=== PATIENT | female | born 2000 | race Caucasian/White ===

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

== ENCOUNTER 2021-02-23 09:45 | Emergency (ER) | payer MEDICAID ==
--- NOTE | 2021-02-23 10:02 | ED Lower Extremity ---
General Stated Complaint: R ANKLE PAIN Source: patient, family Exam Limitations: no limitations History of Present Illness Date Seen by Provider: Feb 23, 2021 Time Seen by Provider: 09:50 Initial Comments 20-year-old female with no significant past medical history coming in after injuring her right ankle. Last night around midnight she had been drinking some alcohol, was walking down some stairs, and twisted her right ankle. She did also land on her left knee which did not cause significant pain. Did not hit her head or pass out. Remembers all events. When she woke up this morning she was having worsening right ankle pain, and took ibuprofen 600 mg around 8:30 AM this morning which has helped with the pain. She does endorse some bruising and swelling to her right lateral ankle. She says she has been able to put weight on it but it is difficult and makes the pain worse. The pain is throbbing, moderate, constant, and better with rest. She is otherwise denying any other acute complaints. LMP was 2 days ago. Allergies and Home Medications Allergies Coded Allergies: No Known Drug Allergies (Unverified , 04/15/16) Patient Home Medication List Home Medication List Reviewed: Yes Review of Systems Constitutional: No chills EENTM: No blurred vision Respiratory: No cough Cardiovascular: no symptoms reported Gastrointestinal: no symptoms reported Genitourinary: no symptoms reported Musculoskeletal: joint pain Skin: no symptoms reported Psychiatric/Neurological: No Symptoms Reported All Other Systems Reviewed Negative Unless Noted: Yes Past Mtpvjee-Svrzex-Vxnhta Hx Patient Social History Tobacco Use?: No Substance use?: No Alcohol Use?: Yes Past Medical History Surgeries: No Reproductive Disorders: No Physical Exam Vital Signs Vital Signs - First Documented 02/23/21 09:51 Pulse 98 Resp 18 B/P (MAP) 155/86 (109) Pulse Ox 98 O2 Delivery Room Air Capillary Refill : Height, Weight, BMI Height: 5'6" Weight: 150lbs. oz. 68.049052vk; 24.21 BMI Method:Stated General Appearance: WD/WN, no apparent distress HEENT: PERRL/EOMI, normal ENT inspection, pharynx normal Neck: non-tender, full range of motion, supple, normal inspection Cardiovascular: regular rate, rhythm, no edema, no murmur Respiratory: chest non-tender, lungs clear, normal breath sounds, no respiratory distress, no accessory muscle use Gastrointestinal: normal bowel sounds, non tender, soft; No guarding Hips: bilateral hip non-tender, bilateral hip normal inspection, bilateral hip normal range of motion, bilateral hip no evidence of injury Legs: bilateral leg non-tender, bilateral leg normal inspection, bilateral leg normal range of motion, bilateral leg no evidence of injury Knees: bilateral knee non-tender; right knee normal inspection; bilateral knee normal range of motion, bilateral knee no evidence of injury; left knee other (small abrasion to L knee) Ankles: left ankle non-tender, left ankle normal inspection, left ankle normal range of motion, left ankle no evidence of injury; right ankle limited range of motion, right ankle pain, right ankle soft tissue tenderness, right ankle swelling, right ankle other (Tender maximally over the CFL and PT FL, no pain with squeeze test, no proximal fibular tenderness, no tenderness over the fifth metatarsal, no tenderness over Lisfranc joint, intact Achilles) Feet: bilateral foot non-tender, bilateral foot normal inspection, bilateral foot normal range of motion, bilateral foot no evidence of injury Neurologic/Tendon: normal sensation, normal motor functions Neurologic/Psychiatric: no motor/sensory deficits, alert, normal mood/affect Skin: normal color, warm/dry Lymphatic: no adenopathy Progress/Results/Core Measures Results/Orders My Orders Orders - VERO BENAVIDES MD Ankle, Right, 3 Views (02/23/21 09:56) Vital Signs/I&O 02/23/21 09:51 Pulse 98 Resp 18 B/P (MAP) 155/86 (109) Pulse Ox 98 O2 Delivery Room Air Progress Progress Note : Progress Note 20-year-old female with above history coming in due to right lateral ankle pain. ABCs were intact and vitals were stable on presentation. She never had any trauma to her head, is GCS 15, and is otherwise at her baseline. I do not believe she needs a CT of her head at this time. Additionally has no midline spinal tenderness and did not suffer a significant fall injuring her back. The left knee does have a small abrasion but no tenderness and no concerns for fracture. Right ankle does have lateral tenderness most notably over her CFL and ATFL ligaments. She does have significant soft tissue swelling and bruising. We will obtain an x-ray to further assess for fracture. Offered her Tylenol for pain control given she just took ibuprofen, but she says she is doing okay right now. My interpretation of the three-view x-ray of her right ankle I did not see any obvious fracture or dislocation. I compared it to her previous right ankle x- ray from 2017 and it appears similar. Diagnostic Imaging Diagonstic Imaging: Xray Plain Films/CT/US/NM/MRI: ankle Comments X-ray of the ankle ordered and interpreted by me showing no fracture or dislocation. Departure Impression Primary Impression: Right ankle sprain Qualified Codes: S93.411A - Sprain of calcaneofibular ligament of right ankle, initial encounter Disposition: HOME, SELF-CARE Condition: Stable Departure-Patient Inst. Decision time for Depature: 11:01 Referrals: NO,LOCAL PHYSICIAN (PCP) Primary Care Physician BEN LEVI MD Patient Instructions: Ankle Sprain (DC) Add. Discharge Instructions: You were seen in the emergency department for your right ankle pain with bruising and swelling. Fortunately nothing is broken but you do have a sign ificant sprain. I recommend keeping it wrapped for pressure to minimize the swelling, take 600 mg of ibuprofen every 6 hours for the next several days, and ice it 20 minutes on roughly 3-4 times per day. Try to keep it elevated to help with the swelling. If pain is not significantly improving over the next week then I do recommend he follow-up with the orthopedic physician Dr. Levi or whoever you have a preference for. Work/School Note: Work Release Form Date Seen in the Emergency Department: Feb 23, 2021 Return to Work: Feb 25, 2021 Restrictions: No Restrictions VERO BENAVIDES MD Feb 23, 2021 10:02
--- NOTE | 2021-02-23 11:05 | Diagnostic Imaging Report ---
EXAM: ANKLE, RIGHT, 3 VIEWS INDICATION: Right ankle pain and injury. COMPARISON: 04/15/2016. FINDINGS: Soft tissue swelling about the lateral malleolus. No fracture or malalignment. IMPRESSION: No acute osseous findings in the right ankle. Dictated by: Dictated on workstation # [id number]
[2021-02-23 11:12] VITALS: BP 155/86
== END 2021-02-23 11:12 | disposition home or self-care (01) ==
LOC: EDUNIT# 09:45 → ER 09:48
DX: S93.411A Sprain of calcaneofibular ligament of right ankle, initial encounter (principal); X50.1XXA Overexertion from prolonged static or awkward postures, initial encounter
CPT/HCPCS: 73610; 99282; L4350

== ENCOUNTER → 2021-12-10 | Outpatient (CLI) | payer MEDICAID ==
--- NOTE | 2021-12-10 18:49 | Diagnostic Imaging Report ---
INDICATION: Routine surveillance TECHNIQUE: Multiple real-time grayscale images were obtained over the gravid uterus. COMPARISON: None FINDINGS: Number: Single live Presentation: Transverse with head to maternal left Placenta: Posterior with inferior tip 2.9 cm from the internal cervical os Amniotic Fluid: TRINY is 16.1 cm. Single largest vertical pocket is 6.2 cm. Heart Rate: 146 bpm BPD: 4.8 cm; consistent with 20 weeks and 5 days HC: 19 cm; consistent with 21 weeks and 2 days AC: 16 cm; consistent with 21 weeks and 3 days FL: 3.3 cm; consistent with 20 weeks and 3 days EGA from current exam: 21 weeks and 0 days gestation plus or minus 2 weeks ALEKSANDER from current exam: 04/22/2022 CLINICAL DATES: Gestational age 21 weeks and 0 days, ALEKSANDER 04/22/2022 EFW: 385 g (14 ounces +/- 2 ounces); this is consistent with the 39th percentile FINDINGS: The anatomic survey is grossly unremarkable. The stomach, four-chamber heart, kidneys, bladder, three-vessel cord and the cord insertion are well seen. The spine and intracranial structures are grossly unremarkable. Maternal adnexa are unremarkable. Maternal ovaries are not well visualized due to positioning. IMPRESSION: Single live intrauterine at approximately 21 weeks and 0 days, with an ALEKSANDER of 04/22/2022. These are concordant with clinical dates. No gross abnormalities are seen at this time. Dictated by: Dictated on workstation # [id number]
== END ==
LOC: RAD 09:45
PROVIDERS: ATTEND Obstetrics & Gynecology
DX: Z34.02 Encounter for supervision of normal first pregnancy, second trimester (principal); Z3A.21 21 weeks gestation of pregnancy
CPT/HCPCS: 76805

== ENCOUNTER 2022-04-21 05:14 | Inpatient (IN) | payer MEDICAID ==
[2022-04-21] VITALS (78 sets, daily range): BP systolic 106–153; BP diastolic 49–94
[~2022-04-21] VITALS: Ht 172.7 cm; Wt 105.5 kg
[2022-04-21 06:27] LABS: BILIRUBIN,URINE NEGATIVE (NEGATIVE); CLARITY,URINE CLEAR; COLOR,URINE YELLOW; GLUCOSE, URINE (UA) NEGATIVE (NEGATIVE); KETONES,URINE NEGATIVE (NEGATIVE); LEUKOCYTE ESTERASE ,URINE NEGATIVE (NEGATIVE); NITRITE,URINE NEGATIVE (NEGATIVE); PROTEIN,URINE NEGATIVE (NEGATIVE)
[2022-04-21 06:34] LABS: BACTERIA,URINE TRACE /HPF; SQUAMOUS EPITHELIAL CELL,UR 0-2 /HPF
[2022-04-21 07:59] LABS: BASOPHILS % (AUTO) 0 % (0-10); EOSINOPHILS # (AUTO) 0.1 10^3/uL (0.0-0.3); EOSINOPHILS % (AUTO) 1 % (0-10); HEMATOCRIT 38 % (35-52); HEMOGLOBIN 12.3 g/dL (11.5-16.0); LYMPHOCYTES # (AUTO) 1.8 10^3/uL (1.0-4.0); LYMPHOCYTES % (AUTO) 18 % (12-44); MEAN CORPUSCULAR HEMOGLOBIN 26 pg (25-34); MEAN CORPUSCULAR HGB CONC 33 g/dL (32-36); MEAN CORPUSCULAR VOLUME 81 fL (80-99); MEAN PLATELET VOLUME 11.8 fL (9.0-12.2); MONOCYTES # (AUTO) 1.1 10^3/uL (0.0-1.0); MONOCYTES % (AUTO) 10 % (0-12); NEUTROPHILS # (AUTO) 7.2 10^3/uL (1.8-7.8); NEUTROPHILS % (AUTO) 71 % (42-75); PLATELET COUNT 266 10^3/uL (130-400); WHITE BLOOD COUNT 10.1 10^3/uL (4.3-11.0)
[2022-04-21] MEDS: D5 LR IV SOLUTION 1,000 ML IV SCH ×3 (08:18→21:38)
[2022-04-21] MEDS ORDERED: OXYTOCIN PRE-MIX DRIP 500 ML IV SCH (08:30)
--- NOTE | 2022-04-21 08:40 | History & Physical-OB ---
OB - Chief Complaint & HPI Date/Time Date of Admission: Date of Admission: Apr 21, 2022 at 06:20 Date seen by a Provider: Apr 21, 2022 Time Seen by a Provider: 08:20 Chief Complaint/History OB-Reason for Admission/Chief: Rupture of Membranes Hx : 1 Hx Para: 0 Expected Date of Delivery: Apr 22, 2022 Gestational Age in Weeks: 39 Gestational Age in Days: 6 Admission Nurse Assessment Rev: Yes History of Labs A pos Antibody neg CF carrier RNI RPR NR HIV NR HBsAg NR GC neg GBS neg Allergies and Home Medications Allergies Coded Allergies: Penicillins (Verified Allergy, Mild, Rash, 04/21/22) Patient Home Medication List Home Medication List Reviewed: Yes OB - History Hx of Present Care: Yes Ultrasounds: Normal mid trimester US Obstetrical Complications: None Medical Complications: None Obstetrical History Hx : 1 Delivery History Hx Blood Disorders: No Patient Past Medical History n/a Immunizations Influenza Vaccine Up-to-Date: Yes; Up-to-Date OB - Admission Exam Physical Exam Vitals: Vital Signs 04/21/22 04/21/22 06:28 06:48 Temp 37.0 Pulse 100 Resp 20 B/P (MAP) 138/83 (101) Pulse Ox 97 O2 Delivery Room Air HEENT: NCAT Heart: Rhythm Normal Lungs: Clear Abdomen: Gravid Extremities: Normal Reflexes: Normal Cervical Dilatation: 1cm Effacement: 75% Station: -2 Membranes: Ruptured Amniotic Fluid: Clear Heart Rate: 130's Accelerations: Accelerations Present Decelerations: No Decelerations Short Term Variability: Present Usp Variability: Average (6-25) Contractions on Admission: 6-10 Minutes Apart Intensity: Mild Labs Laboratory Tests Test 04/21/22 05:20 04/21/22 06:00 04/21/22 07:30 Range/Units Urine Color YELLOW Urine Clarity CLEAR Urine pH 7.0 5-9 Urine Specific [place] 1.020 1.016-1.022 Urine Protein NEGATIVE NEGATIVE Urine Glucose (UA) NEGATIVE NEGATIVE Urine Ketones NEGATIVE NEGATIVE Urine Nitrite NEGATIVE NEGATIVE Urine Bilirubin NEGATIVE NEGATIVE Urine Urobilinogen 0.2 < = 1.0 MG/DL Urine Leukocyte Esterase NEGATIVE NEGATIVE Urine RBC (Auto) NEGATIVE NEGATIVE Urine RBC NONE /HPF Urine WBC NONE /HPF Urine Squamous Epithelial Cells 0-2 /HPF Urine Crystals NONE /LPF Urine Bacteria TRACE /HPF Urine Casts NONE /LPF Urine Mucus NEGATIVE /LPF Urine Culture Indicated NO Membranes Rupture POSITIVE White Blood Count 10.1 4.3-11.0 10^3/uL Red Blood Count 4.66 3.80-5.11 10^6/uL Hemoglobin 12.3 11.5-16.0 g/dL Hematocrit 38 35-52 % Mean Corpuscular Volume 81 80-99 fL Mean Corpuscular Hemoglobin 26 25-34 pg Mean Corpuscular Hemoglobin Concent 33 32-36 g/dL Red Cell Distribution Width 14.4 10.0-14.5 % Platelet Count 266 130-400 10^3/uL Mean Platelet Volume 11.8 9.0-12.2 fL Immature Granulocyte % (Auto) 1 % Neutrophils (%) (Auto) 71 42-75 % Lymphocytes (%) (Auto) 18 12-44 % Monocytes (%) (Auto) 10 0-12 % Eosinophils (%) (Auto) 1 0-10 % Basophils (%) (Auto) 0 0-10 % Neutrophils # (Auto) 7.2 1.8-7.8 10^3/uL Lymphocytes # (Auto) 1.8 1.0-4.0 10^3/uL Monocytes # (Auto) 1.1 H 0.0-1.0 10^3/uL Eosinophils # (Auto) 0.1 0.0-0.3 10^3/uL Basophils # (Auto) 0.0 0.0-0.1 10^3/uL Immature Granulocyte # (Auto) 0.1 0.0-0.1 10^3/uL OB - Assessment/Plan/Diagnosis Assessment Assessment: rupture of membranes Admission Dx 21 yo @ 39.6 weeks SROM CF Carrier GBS neg Admission Status: Inpatient Order (span 2 midnights) Reason for Inpatient Admission: Active labor at 39 weeks Plan Plan: Expectant Management Other Plan Will start Pitocin augmentation due to inadequate contraction pattern NELSY FRANCIS DO Apr 21, 2022 08:40
[2022-04-21] MEDS ORDERED: fentaNYL 2 mcg/ml BUPIVA 0.125 0 ML ONE (08:59)
[2022-04-21] MEDS ORDERED: CATHETER FLUSH 10 ML SYR IV SCH (14:00)
[2022-04-21] MEDS ORDERED: LIDOCAINE 1% INJ 20 ML VIAL IJ PRN (18:00)
[2022-04-21] MEDS ORDERED: fentaNYL 2 mcg/ml BUPIVA 0.125 100 ML ONE (19:33)
[2022-04-21] MEDS ORDERED: fentaNYL INJ 100 MCG/2 ML AMP ONE (20:15)
[2022-04-21] MEDS ORDERED: LIDOCAINE PF 2% 5 ML (XYLOCAINE) VIAL ONE (20:15)
[2022-04-21] MEDS: fentaNYL 2 mcg/ml BUPIVA 0.125 100 ML EPI SCH (20:33)
[2022-04-21] MEDS ORDERED: ONDANSETRON 4 MG/2 ML (SDV) Z0FRAN IV PRN (20:45)
[2022-04-21] MEDS ORDERED: METOCLOPRAMIDE INJ 10 MG/2 ML (REGLAN) IV PRN (20:45)
[2022-04-21] MEDS ORDERED: LACTATED RINGERS 1,000 ML IV SCH (20:45)
[2022-04-21] MEDS ORDERED: diphenhydrAMINE 50 MG/ML INJ (BENADRYL) IV PRN (20:45)
[2022-04-21] MEDS ORDERED: NALOXONE 0.4 MG/ML 1 ML (NARCAN) VIAL IV PRN ×2 (20:45)
[2022-04-22] VITALS (49 sets, daily range): BP systolic 97–152; BP diastolic 50–88
[2022-04-22] MEDS: fentaNYL 2 mcg/ml BUPIVA 0.125 100 ML EPI SCH (03:51)
[2022-04-22] MEDS: D5 LR IV SOLUTION 1,000 ML IV SCH (05:18)
[2022-04-22] MEDS ORDERED: FAMOTIDINE 20MG/2ML IV (PEPCID) IV ONE (09:15)
[2022-04-22] MEDS ORDERED: METOCLOPRAMIDE INJ 10 MG/2 ML (REGLAN) IV ONE (09:15)
[2022-04-22] MEDS ORDERED: CITRIC ACID/SOB CIT (BICITRA) 30 ML UDC PO ONE (09:15)
[2022-04-22] MEDS: LACTATED RINGERS 1,000 ML IV PRN ×2 (11:07→12:30)
[2022-04-22] MEDS ORDERED: KETAMINE 50 MG/5 ML SYRINGE ONE (12:03)
[2022-04-22] MEDS ORDERED: LIDOCAINE PF 2% 5 ML (XYLOCAINE) VIAL ONE (12:03)
[2022-04-22] MEDS ORDERED: ONDANSETRON 4 MG/2 ML (SDV) Z0FRAN ONE (12:03)
[2022-04-22] MEDS ORDERED: BUPIVACAINE 0.5% 30 ML (SENSORCAINE) VIAL ONE (12:03)
[2022-04-22] MEDS ORDERED: fentaNYL INJ 100 MCG/2 ML AMP ONE (12:03)
[2022-04-22] MEDS ORDERED: ceFAZolin INJECTION 2,000 MG in NS (IVPB) 50 ML IV ONE ×2 (12:30→20:30)
[2022-04-22] MEDS ORDERED: OXYTOCIN PRE-MIX DRIP 1,000 ML IV ONE (12:31)
[2022-04-22] MEDS ORDERED: NALOXONE 0.4 MG/ML 1 ML (NARCAN) VIAL IV PRN (12:45)
[2022-04-22] MEDS ORDERED: MEASLES,MUMPS,RUBELLA 1 EA INJ SC SCH (12:45)
[2022-04-22] MEDS ORDERED: ONDANSETRON 4 MG/2 ML (SDV) Z0FRAN IVP PRN ×2 (12:45→13:30)
[2022-04-22] MEDS ORDERED: KETOROLAC 30 MG/ML VIAL IV SCH (12:45)
[2022-04-22] MEDS ORDERED: TETANUS,DIPTH,PERTUSS P/F (BOOSTRIX) 0.5 ML VIAL IM SCH (12:45)
[2022-04-22] MEDS ORDERED: MIDAZOLAM 2 MG/2 ML (VERSED) VIAL ONE (12:48)
[2022-04-22] MEDS ORDERED: METHYLERGONOVINE 0.2 MG/ML (METHERGINE) AMP ONE (12:49)
[2022-04-22] MEDS ORDERED: proPOfol 200 MG/20 ML (DIPRIVAN) VIAL IV ONE (12:54)
[2022-04-22] MEDS ORDERED: KETOROLAC 30 MG/ML VIAL ONE (13:12)
[2022-04-22] MEDS ORDERED: morphine INJ 10 MG/ML 1ML (SYR OR VIAL) ONE (13:19)
[2022-04-22] MEDS ORDERED: morphine INJ 4 MG/ML 1 ML (VIAL/SYRINGE) ONE (13:20)
--- NOTE | 2022-04-22 13:20 | Progress Note ---
Standard Progress Note Progress Notes/Assess & Plan Date Seen by a Provider: Apr 22, 2022 Time Seen by a Provider: 13:18 Progress/Assessment & Plan Patient admitted for SROM and augmented in labor due to inadequate contraction pattern using pitocin to max dose of 20 mu. With an adequate contraction pattern to progressed to 4 cm, but over a timeframe of 8 hrs made no further change. Due to arrest of dilatation patient was offered and agreed to proceed with PLTCS. NELSY FRANCIS DO Apr 22, 2022 13:20
[2022-04-22] MEDS ORDERED: HYDROmorphone 2 MG/ML VIAL (DILAUDID) IV ONE (13:30)
[2022-04-22] MEDS ORDERED: morphine INJ 10 MG/ML 1ML (SYR OR VIAL) IVP ONE (13:30)
[2022-04-22] MEDS ORDERED: PROMETHAZINE INJ 25 MG/ML (PHENERGAN) AMP IVP ONE (13:30)
[2022-04-22] MEDS ORDERED: MEPERIDINE (DEMEROL) INJ 50 MG/ML IVP ONE (13:30)
[2022-04-22] MEDS ORDERED: CATHETER FLUSH 10 ML SYR IV SCH (14:00)
[2022-04-22] MEDS: OXYTOCIN PRE-MIX DRIP 500 ML IV SCH ×2 (14:13→17:44)
[2022-04-22] MEDS: HYDROcodone/APAP 5 MG/325 MG (LORTAB) TAB PO PRN ×3 (15:11→22:08)
[2022-04-22] MEDS: KETOROLAC 30 MG/ML VIAL IV SCH (19:08)
[2022-04-22] MEDS: DOCUSATE SODIUM 100 MG (COLACE) CAP PO SCH (20:52)
--- NOTE | 2022-04-22 21:12 | OPERATIVE REPORT ---
PREOPERATIVE DIAGNOSES: 1. A 21-year-old G1, P0 at 39 weeks and 6 days gestation. 2. Arrest of dilatation and failure to progress. POSTOPERATIVE DIAGNOSES: 1. A 21-year-old G1, P0 at 39 weeks and 6 days gestation. 2. Arrest of dilatation and failure to progress. PROCEDURE: Primary low transverse section. SURGEON: Michoacano Francis DO ANESTHESIA: Epidural, which was bolused. ESTIMATED BLOOD LOSS: 400 mL URINE OUTPUT: 100 mL clear at the end of the procedure. FLUIDS: 1800 mL lactated Ringer's solution. FINDINGS: Live male weighing 9 pounds 15 ounces, Apgars of 9 and 10. Grossly normal appearing uterus, bilateral fallopian tubes and ovaries. SPECIMENS SENT: None. INDICATIONS FOR PROCEDURE: This 21-year-old female who is a patient who had sought care in my office. Her was uncomplicated. She presented with spontaneous rupture of membranes on Thursday morning. She was not actively frantz on admission, therefore Pitocin augmentation was administered to achieve an adequate contraction pattern. She was continued on this throughout the day on Thursday and throughout the night last night. She did end up receiving an epidural for pain management and progressed to 4 cm. She was 4 cm for nearly an 8-hour timeframe where the heart tracing was reassuring, category 1 and maternal status was excellent with no concerns for maternal status. However, due to the patient's morale and wanting to proceed with delivery as she had been in labor since yesterday morning, she was requesting proceeding with . Due to arrest of dilatation, I discussed with her all this is adequate indication. Discussed with the patient the risks of the surgery including risk of bleeding, infection, damage to surrounding structures including but not limited to bowel, bladder, ureter or kidney, possible need for reoperation, postoperative complications that may occur, recovery timeframe, risk from anesthesia and even . After everything was discussed with the patient in detail, consent was obtained and the patient was taken to the operating room. DESCRIPTION OF PROCEDURE: Once in the operating room, epidural analgesia was bolused and found to be adequate. She was placed in the supine position with leftward tilt, prepped and draped in normal sterile fashion where anesthesia was tested. A timeout was performed. I then made a Pfannenstiel skin incision with a knife and carried down to underlying fascia using Bovie cautery and the fascial incision extended laterally using Bovie cautery. Superior aspect of the fascial incision was then grasped with Devin clamps, tented up and dissected off the rectus muscles. The inferior aspect of the fascial incision was then grasped with Devin clamps and sharply dissected off the rectus muscles. Rectus muscles were dissected in the midline using sharp dissection which exposed the peritoneum, in which we entered bluntly and extended using blunt traction. An Anup ring retractor was placed in the peritoneal incision which was extended lateral sidewall retraction identified. The lower uterine segment was found to be thinned out and made a low transverse incision into the vesicouterine peritoneum and bluntly dissected off of the lower uterine segment, creating a bladder flap. I then proceeded by myotomy and the membranes were visualized, at which point extended the uterine incision laterally and superiorly using bandage scissors. Amniotomy through the incision was noted. Clear fluid was noted through the amniotomy. The infant was found in the vertex presentation with gentle fundal pressure, the 's head was elevated up to the incision where was delivered through the incision. The nares and oropharynx were bulb suctioned. Anterior and posterior shoulders were delivered and the infant was brought to the operative field. Cord was doubly clamped and cut and infant was handed off to waiting nurses in attendance. Cord blood was collected. Three-vessel cord intact placenta was delivered spontaneously thereafter. IV Pitocin was initiated to facilitate uterine contraction. Uterine fundus confirmed by manual massage. The uterus was then exteriorized and cleared of all endometrial clots and debris. I then have anesthesia administer 0.2 mg of Methergine due to some persistent uterine atony. I then proceeded with closing the uterine incision using 0 Vicryl suture in a running locked fashion. Second layer of imbricating 0 Monocryl was placed. Excellent hemostasis was noted after doing this. I then placed the uterus back in the pelvis and copiously irrigated the pelvis with normal saline. There was no active bleeding noted from any of my dissection planes. I placed Interceed antiadhesive over my low transverse incision. I then removed the Anup ring retractor and then proceeded with closing the peritoneum using 3-0 Vicryl suture in a running fashion. The rectus muscles were reapproximated using 3-0 Vicryl suture in interrupted fashion. The fascia was reapproximated using 0 Vicryl suture in running fashion. The subcutaneous tissue was reapproximated using 3-0 plain interrupted subcutaneous stitch and schedule reapproximated with 4-0 Monocryl running subcuticular. Dermabond was applied to incision. A sterile dressing with adhesive white tape. The patient tolerated the procedure well and was taken to recovery area in stable condition. Lap and sponge count is correct at the end of the procedure. Instrument counts were correct as well. Two grams of Ancef given preoperatively for infection prophylaxis. Job ID: [id number] DocumentID: [id number] Dictated Date: 04/22/2022 13:26:46 Dairy Hand Date: 04/22/2022 21:09:00 Dictated By: MICHOACANO FRANCIS DO
[2022-04-23] VITALS (7 sets, daily range): BP systolic 113–138; BP diastolic 56–73
[2022-04-23] MEDS: KETOROLAC 30 MG/ML VIAL IV SCH ×2 (00:21→05:57)
[2022-04-23] MEDS: HYDROcodone/APAP 5 MG/325 MG (LORTAB) TAB PO PRN ×3 (02:12→17:44)
[2022-04-23 05:23] LABS: BASOPHILS % (AUTO) 0 % (0-10); EOSINOPHILS % (AUTO) 0 % (0-10); HEMATOCRIT 30 % (35-52); HEMOGLOBIN 10.1 g/dL (11.5-16.0); LYMPHOCYTES # (AUTO) 1.3 10^3/uL (1.0-4.0); LYMPHOCYTES % (AUTO) 10 % (12-44); MEAN CORPUSCULAR HEMOGLOBIN 27 pg (25-34); MEAN CORPUSCULAR HGB CONC 33 g/dL (32-36); MEAN CORPUSCULAR VOLUME 81 fL (80-99); MEAN PLATELET VOLUME 12.3 fL (9.0-12.2); MONOCYTES # (AUTO) 1.3 10^3/uL (0.0-1.0); MONOCYTES % (AUTO) 10 % (0-12); NEUTROPHILS # (AUTO) 10.3 10^3/uL (1.8-7.8); NEUTROPHILS % (AUTO) 80 % (42-75); PLATELET COUNT 165 10^3/uL (130-400); WHITE BLOOD COUNT 12.9 10^3/uL (4.3-11.0)
[2022-04-23] MEDS: DOCUSATE SODIUM 100 MG (COLACE) CAP PO SCH ×2 (08:09→20:46)
--- NOTE | 2022-04-23 09:39 | Postpartum Progress Note ---
Note Note Day # 1 Subjective: Patient is without complaints. Ambulating, voiding. Tolerating a regular diet without nausea or vomiting. Normal lochia. Pain is well controlled with oral pain medications. Physical Exam: General - Alert and oriented, no apparent distress Abdomen - Soft, appropriately tender to palpation, non-distended, fundus firm at umbilicus; incision c/d/i Extremities - no edema, negative Iftikhar's bilaterally Assessment: Post- day # 1, status post PLTCS. Recovering well, hemodynamically stable Acute blood loss anemia Plan: Routine care. Encourage breast feeding. Encourage ambulation. Ferrous sulfate supplementation. Plan for discharge tomorrow Vitals - Labs Vital Signs - I&O Vital Signs Date Time Temp Pulse Resp B/P (MAP) Pulse Ox O2 Delivery O2 Flow Rate FiO2 04/23/22 04:25 36.6 86 18 113/57 (75) 97 Room Air 04/23/22 00:23 37.5 97 18 128/65 (86) 95 Room Air 04/22/22 19:55 37.2 91 18 115/70 (85) 97 Room Air 04/22/22 16:25 38.0 98 20 142/70 (94) 96 Room Air 04/22/22 16:05 Room Air 04/22/22 14:18 Room Air 04/22/22 14:18 36.4 18 134/84 (101) 97 Room Air 04/22/22 14:03 36.6 18 135/81 (99) 97 Room Air 04/22/22 14:03 Room Air 04/22/22 13:48 36.6 18 137/88 (104) 97 Room Air 04/22/22 13:48 Room Air 04/22/22 13:33 Room Air 04/22/22 13:33 36.7 18 139/76 (97) 97 Room Air 04/22/22 13:18 36.0 18 145/83 (103) 98 Room Air 04/22/22 13:18 Room Air 04/22/22 11:55 36.9 108 20 135/83 (100) Room Air 04/22/22 11:40 101 20 117/61 (79) Room Air 04/22/22 11:25 93 20 112/61 (78) Room Air 04/22/22 11:10 105 20 114/70 (85) Room Air 04/22/22 10:55 82 20 109/58 (75) Room Air 04/22/22 10:40 104 20 105/58 (74) Room Air 04/22/22 10:25 75 20 102/55 (71) Room Air 04/22/22 10:10 81 20 97/52 (67) Room Air 04/22/22 09:55 76 20 103/54 (70) Room Air 04/22/22 09:40 90 20 130/75 (93) Room Air I & O 04/23/22 07:00 Intake Total 1600 ml Output Total 2650 ml Balance -1050 ml Labs Laboratory Tests 04/23/22 04:40: White Blood Count 12.9H, Red Blood Count 3.76L, Hemoglobin 10.1L, Hematocrit 30L , Mean Corpuscular Volume 81, Mean Corpuscular Hemoglobin 27, Mean Corpuscular H emoglobin Concent 33, Red Cell Distribution Width 15.0H, Platelet Count 165, Mean Platelet Volume 12.3H, Immature Granulocyte % (Auto) 0, Neutrophils (%) (Auto) 80H, Lymphocytes (%) (Auto) 10L, Monocytes (%) (Auto) 10, Eosinophils (%) (Auto) 0, Basophils (%) (Auto) 0, Neutrophils # (Auto) 10.3H, Lymphocytes # (Auto) 1.3, Monocytes # (Auto) 1.3H, Eosinophils # (Auto) 0.0, Basophils # (Auto) 0.0, Immature Granulocyte # (Auto) 0.1 TAMARA SHEPHERD APRN Apr 23, 2022 09:39
[2022-04-23] MEDS: SIMETHICONE 80 MG (MYLICON) CHEW PO PRN ×3 (10:47→22:48)
[2022-04-23] MEDS: IBUPROFEN 600 MG (MOTRIN) TAB PO SCH ×3 (12:19→22:47)
--- NOTE | 2022-04-23 12:39 | Anesthesia-Regional Post-Op ---
Regional Patient Condition Mental Status: Alert, Oriented x3 Circulation: Same as Pre-Op Headache: Absent Sensation: Full Recovery Motor Block: Absent Post Op Complications Complications None Follow Up Care/Instructions Patient Instructions None needed. Anesthesia/Patient Condition Patient is doing well, no complaints, stable vital signs, no apparent adverse anesthesia problems. No complications reported per nursing. NADJA SANCHEZ CRNA Apr 23, 2022 12:39
[2022-04-24 04:18] VITALS: BP 127/64
[2022-04-24] MEDS: IBUPROFEN 600 MG (MOTRIN) TAB PO SCH ×2 (04:18→09:37)
[2022-04-24] MEDS: HYDROcodone/APAP 5 MG/325 MG (LORTAB) TAB PO PRN ×2 (04:18→10:42)
--- NOTE | 2022-04-24 07:59 | Postpartum Progress Note ---
Note Note Day # 2 Subjective: Patient is without complaints. Ambulating, voiding. Tolerating a regular diet without nausea or vomiting. Normal lochia. Pain is well controlled with oral pain medications. Objective: Physical Exam: General - Alert and oriented, no apparent distress Abdomen - Soft, appropriately tender to palpation, non-distended, fundus firm at umbilicus Extremities - no edema, negative Iftikhar's bilaterally Incision- c/d/i Assessment: POD 2 PLTCS Acute blood loss anemia Plan: Routine care. Encourage breast feeding. Encourage ambulation. Ferrous sulfate supplementation. Plan for discharge today Vitals - Labs Vital Signs - I&O Vital Signs Date Time Temp Pulse Resp B/P (MAP) Pulse Ox O2 Delivery O2 Flow Rate FiO2 04/24/22 04:18 37.0 84 16 127/64 (85) 98 Room Air 04/23/22 22:48 37.4 96 16 126/58 (80) 98 Room Air 04/23/22 17:47 37.5 96 16 127/60 (82) 97 Room Air 04/23/22 12:19 36.5 90 16 128/58 (81) 97 Room Air 04/23/22 10:47 80 16 138/73 (94) Room Air 04/23/22 08:00 36.6 81 16 115/56 (75) 97 Room Air NELSY FRANCIS DO Apr 24, 2022 07:59
--- NOTE | 2022-04-24 08:00 | Discharge Inst-Women's Service ---
Discharge Inst-Women's Serv Depart Medication/Instructions New, Converted or Re-Newed RX: Transmitted to Pharmacy Final Diagnosis POD 2 PLTCS Problems Reviewed?: Yes Consults/Follow Up Additional Follow Up: Yes Orders/Referrals Dr. Poe/Amanda in 7-10 days and in 6 weeks Activity Activity: Activity as Tolerated Driving Instructions: No Driving for 1 Week NO SMOKING: NO SMOKING Nothing Inside Vagina: No Douching, No [place], No Tampons Diet Discharge Diet: No Restrictions Symptoms to Report to : Bleeding Excessive, Pain Increased, Fever Over 101 Degrees F, Vaginal Bleeding Increase, Questions/Concerns For Any Problems or Questions: Contact Your Physician Skin/Wound Care Infection Signs and Symptoms: Increased Redness, Foul Odor of Wound, Increased Drainage, Skin Itchy or Has a Rash, Increased Swelling, Temperature Above 101 F Operative Area Clean and Dry: Keep Incision Clean/Dry Stitches/Estefanía/Dermabond: Dermabond, Care of Stitches Bathing Instructions: NELSY Madrigal DO Apr 24, 2022 08:00
[2022-04-24] MEDS ORDERED: IBUP-844 PO (08:01)
[2022-04-24] MEDS ORDERED: ACHD5005 PO (08:01)
[2022-04-24] MEDS ORDERED: DOCU100C37 PO (08:01)
[2022-04-24] MEDS: DOCUSATE SODIUM 100 MG (COLACE) CAP PO SCH (09:37)
[2022-04-24 10:45] VITALS: BP 132/71
== END 2022-04-24 11:05 | disposition home or self-care (01) | DRG 787 ==
LOC: WSo 05:14 → LDRP 05:17 → WSo 06:20 → LDRP 06:20
PROVIDERS: ADMIT Obstetrics & Gynecology; ATTEND Obstetrics & Gynecology
PROC: 10D00Z1 Extraction of Products of Conception, Low, Open Approach (ICD-10-PCS; principal; 2022-04-22 12:30)
DX: O62.1 Secondary uterine inertia (principal); D62 Acute posthemorrhagic anemia; O32.4XX0 Maternal care for high head at term, not applicable or unspecified; O90.81 Anemia of the puerperium; Z37.0 Single live birth; Z3A.39 39 weeks gestation of pregnancy; Z14.1 Cystic fibrosis carrier; Z88.0 Allergy status to penicillin
CPT/HCPCS: 36415; 81000; 84112; 85025; 86780; 86850; 86900; 86901; 94664; 99212

== ENCOUNTER 2022-05-07 03:22 | Emergency (ER) | payer MEDICAID ==
[~2022-05-07 03:22] MED LIST: ACHD5005 PO; DOCU100C37 PO; IBUP-844 PO
[2022-05-07 04:14] LABS: BILIRUBIN,URINE NEGATIVE (NEGATIVE); CLARITY,URINE SL CLOUDY; COLOR,URINE YELLOW; GLUCOSE, URINE (UA) NEGATIVE (NEGATIVE); KETONES,URINE NEGATIVE (NEGATIVE); LEUKOCYTE ESTERASE ,URINE 1+ (NEGATIVE); NITRITE,URINE NEGATIVE (NEGATIVE); PROTEIN,URINE NEGATIVE (NEGATIVE)
[2022-05-07 04:21] LABS: BACTERIA,URINE FEW /HPF
[2022-05-07 04:22] LABS: SQUAMOUS EPITHELIAL CELL,UR 0-2 /HPF; YEAST,URINE FEW /HPF
--- NOTE | 2022-05-07 04:22 | ED General ---
General Chief Complaint: (<6 weeks) Stated Complaint: POST OP FEVER Nursing Triage Note: TO ED VIA POV AND AMBULATORY TO ROOM 6. PT STATES SHE HAS BEEN "SHAKING AND FEVERING" SINCE YESTERDAY. PT STATES HER BOYFRIEND TOOK HER TEMP THIS AM B/C SHE WAS SHAKING IN BED AND IT WAS 102 AND HE GAVE HER 1 TYLENOL BUT SHE DOES NOT KNOW [employer]. PT STATES "HE CALLED THEM AND THEY THINK I HAVE AN INFECTION", WHICH WAS FOUND TO BE THAT BOYFRIEND CALLED THE WOMEN'S SERVICES DEPT AND WERE TOLD TO COME TO THE ER. PT IS A COUPLE WEEKS POST C SECTION. C SECTION SCAR IS WELL APPROXIMATED AND CLEAN, DRY, INTACT WITH NO DISCHARGE NOTED. PT IS AND DOES NOT EXHIBIT SIGNS OF MASTITIS. Source of Information: Patient Exam Limitations: No Limitations History of Present Illness Date Seen by Provider: May 07, 2022 Time Seen by Provider: 03:55 Allergies and Home Medications Allergies Coded Allergies: Penicillins (Verified Allergy, Mild, Rash, 04/21/22) Patient Home Medication List Docusate Sodium (Docusate Sodium) 100 Mg Capsule, 100 MG PO BID PRN for CONSTIPATION-1ST LINE Prescribed by: NELSY FRANCIS on 04/24/22 0801 Hydrocodone Bit/Acetaminophen (HYDROcodone/APAP 5 MG/325 MG TAB) 1 Tab Tab, 1-2 EA PO Q6HR PRN for PAIN-MODERATE (5-7) Prescribed by: NELSY FRANCIS on 04/24/22 0801 Ibuprofen (Ibu) 600 Mg Tablet, 600 MG PO Q6H Prescribed by: NELSY FRANCIS on 04/24/22 0801 Past Sbubwii-Ejoxxg-Lxwuwh Hx Patient Social History Tobacco Use?: No Substance use?: No Alcohol Use?: No Immunizations Up To Date Influenza Vaccine Up-to-Date: Yes; Up-to-Date Past Medical History Surgeries: No Reproductive Disorders: No Physical Exam Vital Signs Vital Signs - First Documented 05/07/22 03:35 Temp 38.0 Pulse 106 Resp 16 B/P (MAP) 135/70 (91) Pulse Ox 97 O2 Delivery Room Air Capillary Refill : Less Than 3 Seconds Height, Weight, BMI Height: 5'6" Weight: 150lbs. oz. [id number]; 35.37 BMI Method:Stated Progress/Results/Core Measures Suspected Sepsis SIRS Temperature: Pulse: 106 Respiratory Rate: 16 Blood Pressure 135 /70 Mean: 91 Results/Orders Lab Results Laboratory Tests Test 05/07/22 03:40 05/07/22 04:00 Range/Units Influenza Type A (RT-PCR) Not Detected Not Detecte Influenza Type B (RT-PCR) Not Detected Not Detecte SARS-CoV-2 RNA (RT-PCR) Not Detected Not Detecte Urine Color YELLOW Urine Clarity SL CLOUDY Urine pH 6.0 5-9 Urine Specific Lynn 1.025 H 1.016-1.022 Urine Protein NEGATIVE NEGATIVE Urine Glucose (UA) NEGATIVE NEGATIVE Urine Ketones NEGATIVE NEGATIVE Urine Nitrite NEGATIVE NEGATIVE Urine Bilirubin NEGATIVE NEGATIVE Urine Urobilinogen 0.2 < = 1.0 MG/DL Urine Leukocyte Esterase 1+ H NEGATIVE Urine RBC (Auto) 3+ H NEGATIVE Urine RBC 10-25 H /HPF Urine WBC 5-10 H /HPF Urine Squamous Epithelial Cells 0-2 /HPF Urine Crystals NONE /LPF Urine Bacteria FEW H /HPF Urine Casts NONE /LPF Urine Mucus SMALL H /LPF Urine Yeast FEW H /HPF Urine Culture Indicated YES My Orders Orders - VICKIE KAUR MD Covid 19 Inhouse Test (05/07/22 03:55) Influenza A And B By Pcr (05/07/22 03:55) Ua Culture If Indicated (05/07/22 03:55) Urine Culture (05/07/22 04:00) Cephalexin Capsule (Keflex Capsule) (05/07/22 05:00) Vital Signs/I&O 05/07/22 03:35 Temp 38.0 Pulse 106 Resp 16 B/P (MAP) 135/70 (91) Pulse Ox 97 O2 Delivery Room Air Capillary Refill : Less Than 3 Seconds Blood Pressure Mean: 91 Departure Impression Primary Impression: Febrile illness Additional Impression: Urinary tract infection Qualified Codes: N39.0 - Urinary tract infection, site not specified Disposition: 01 HOME, SELF-CARE Condition: Stable Departure-Patient Inst. Decision time for Depature: 04:49 Referrals: NO,LOCAL PHYSICIAN (PCP/Family) Primary Care Physician Patient Instructions: Urinary Tract Infection, Adult ED Add. Discharge Instructions: Drink plenty of clear liquids to stay well-hydrated. For pain and fever you may take Tylenol (acetaminophen) up to 1000 mg every 6 hours as needed and/or ibuprofen up to 600 mg every 6 hours as needed. There was a subtle suggestion of urinary tract infection on your urinalysis. Take Keflex as prescribed until otherwise directed. Review urine culture results with a primary care provider or Dr. FRANCIS after 48 hours. This will help ensure you are taking an antibiotic most appropriate for your infection or stopping antibiotic if no infection is revealed on urine culture. Use Zofran (ondansetron) as prescribed for nausea and vomiting if needed. Return to care if you have worsening symptoms despite following these instructions. All discharge instructions reviewed with patient and/or family. Voiced understanding. Scripts Cephalexin (Cephalexin) 500 Mg Tablet 500 MG PO QID, #28 TAB Prov: VICKIE KAUR MD 05/07/22 Ondansetron (Ondansetron Odt) 4 Mg Tab.rapdis 4 MG SL Q4H PRN for NAUSEA/VOMITING, #10 TAB Prov: VICKIE KAUR MD 05/07/22 VICKIE KAUR MD May 07, 2022 04:22
[2022-05-07] MEDS ORDERED: CEPH500T PO (04:52)
[2022-05-07] MEDS ORDERED: ONDA4TAB11 SL (04:52)
[2022-05-07] MEDS ORDERED: CEPHALEXIN 250 MG (KEFLEX) CAP PO ONE (05:00)
[2022-05-07 05:01] VITALS: BP 139/83
== END 2022-05-07 05:04 | disposition home or self-care (01) ==
LOC: EDUNIT# 03:22 → ER 03:24
DX: O86.20 Urinary tract infection following delivery, unspecified (principal); N39.0 Urinary tract infection, site not specified; Z88.0 Allergy status to penicillin; Z20.822 Contact with and (suspected) exposure to COVID-19; Z28.310 Unvaccinated for COVID-19
CPT/HCPCS: 81000; 87088; 87636; 99283

== ENCOUNTER 2022-06-09 13:59 | Emergency (ER) | payer MEDICAID ==
[~2022-06-09] VITALS: Ht 170.2 cm; Wt 95.7 kg
[~2022-06-09 13:59] MED LIST changes: +CEPH500T PO; +ONDA4TAB11 SL
[2022-06-09 15:06] LABS: ALBUMIN 4.2 GM/DL (3.2-4.5)
[2022-06-09 15:08] LABS: BASOPHILS # (AUTO) 0.1 10^3/uL (0.0-0.1); BASOPHILS % (AUTO) 1 % (0-10); EOSINOPHILS # (AUTO) 0.2 10^3/uL (0.0-0.3); EOSINOPHILS % (AUTO) 3 % (0-10); HEMATOCRIT 39 % (35-52); HEMOGLOBIN 12.3 g/dL (11.5-16.0); LYMPHOCYTES # (AUTO) 1.8 X 10^3 (1.0-4.0); LYMPHOCYTES % (AUTO) 22 % (12-44); MEAN CORPUSCULAR HEMOGLOBIN 27 pg (25-34); MEAN CORPUSCULAR HGB CONC 32 g/dL (32-36); MEAN CORPUSCULAR VOLUME 84 fL (80-99); MEAN PLATELET VOLUME 10.1 fL (9.0-12.2); MONOCYTES # (AUTO) 0.8 X 10^3 (0.0-1.0); MONOCYTES % (AUTO) 10 % (0-12); NEUTROPHILS # (AUTO) 5.3 X 10^3 (1.8-7.8); NEUTROPHILS % (AUTO) 65 % (42-75); PLATELET COUNT 357 10^3/uL (130-400); TOTAL PROTEIN 7.3 GM/DL (6.4-8.2); WHITE BLOOD COUNT 8.1 10^3/uL (4.3-11.0)
[2022-06-09 15:10] LABS: BILIRUBIN,TOTAL 0.3 MG/DL (0.1-1.0)
[2022-06-09 15:12] LABS: CREATININE SERUM 0.66 MG/DL (0.60-1.30)
--- NOTE | 2022-06-09 15:22 | ED General ---
General Chief Complaint: Rect Problems Stated Complaint: BLOOD IN STOOL | LOW HEMOGLOBIN Nursing Triage Note: PT AMB TO TRIAGE WITH COMPLAINT OF RECTAL BLEEDING. STATES SHE HAS HAD BRIGHT RED STOOLS FOR THE LAST TWO WEEKS THAT HAVE BEEN PAINFUL. STATES WENT TO CLINIC TODAY AND WAS TOLD HER HGB WAS 5. DENIES SOA, CP. STATES HAD A BABY April, C SECTION, AND STRAINED TO POOP. SYMPTOMS STARTED AFTER THAT. Source of Information: Patient Exam Limitations: No Limitations History of Present Illness Date Seen by Provider: Jun 09, 2022 Time Seen by Provider: 14:55 Initial Comments 21-year-old female presents to the ED with complaints of rectal bleeding for the last 1-1/2 months. States the bleeding had stopped for about a week, and restarted again 2 days ago. States that she began having problems with constipation after her in April. Reports she tried taking a stool softener which did not help. Reports her stools have been hard. Denies black tarry stool. Reports her stool is brown, but contains bright red blood. There is also bright red blood in the toilet after going to the restroom. She states she was seen at [facility] clinic and was told her hemoglobin was 5. She states that she has not been drinking a lot of water. She is currently breast-feeding. She denies fevers, chest pain, shortness of air, abdominal pain, nausea, vomiting, lightheadedness, dizziness. Allergies and Home Medications Allergies Coded Allergies: Penicillins (Verified Allergy, Mild, Rash, 04/21/22) polyethylene glycol 3350 (Verified Allergy, Unknown, 06/09/22) Patient Home Medication List Home Medication List Reviewed: Yes Cephalexin (Cephalexin) 500 Mg Tablet, 500 MG PO QID Prescribed by: VICKIE WHEELER on 05/07/22 0452 Docusate Sodium (Docusate Sodium) 100 Mg Capsule, 100 MG PO BID PRN for CONSTIPATION-1ST LINE Prescribed by: NELSY FRANCIS on 04/24/22 0801 Hydrocodone Bit/Acetaminophen (HYDROcodone/APAP 5 MG/325 MG TAB) 1 Tab Tab, 1-2 EA PO Q6HR PRN for PAIN-MODERATE (5-7) Prescribed by: NELSY FRANCIS on 04/24/22 0801 Ibuprofen (Ibu) 600 Mg Tablet, 600 MG PO Q6H Prescribed by: NELSY FRANCIS on 04/24/22 0801 Ondansetron (Ondansetron Odt) 4 Mg Tab.rapdis, 4 MG SL Q4H PRN for NAUSEA/VOMITING Prescribed by: VICKIE WHEELER on 05/07/22 0452 Review of Systems Review of Systems Constitutional: see HPI Past Ugdyaoq-[place]-Wicsel Hx Patient Social History Tobacco Use?: No Use of E-Cig and/or Vaping dev: No Substance use?: No Alcohol Use?: No Pt feels they are or have been: No Past Medical History Surgeries: Yes Section Respiratory: No Cardiac: No Neurological: No Reproductive Disorders: No Genitourinary: No Gastrointestinal: No Musculoskeletal: No HEENT: No Cancer: No Psychosocial: No Integumentary: No Physical Exam Vital Signs Vital Signs - First Documented 06/09/22 06/09/22 14:07 16:35 Pulse 104 Resp 20 B/P (MAP) 144/91 (108) Pulse Ox 99 O2 Delivery Room Air Capillary Refill : Height, Weight, BMI Height: 5'6" Weight: 150lbs. oz. 68.020353vu; 33.00 BMI Method:Stated General Appearance: No Apparent Distress, WD/WN Neck: Normal Inspection, Supple Respiratory: Lungs Clear, Normal Breath Sounds, No Accessory Muscle Use, No Respiratory Distress Cardiovascular: Regular Rate, Rhythm, No Edema, No Gallop, No JVD, No Murmur Gastrointestinal: Normal Bowel Sounds Rectal: Normal Exam, Normal Rectal Tone, Heme Positive Stool; No Hemorrhoids (none visible externally, none palpated internally) Extremity: Normal Inspection, Normal Range of Motion Neurologic/Psychiatric: Alert, Oriented x3, Normal Mood/Affect Skin: Normal Color, Warm/Dry Progress/Results/Core Measures Suspected Sepsis SIRS Temperature: Pulse: 104 Respiratory Rate: 20 Laboratory Tests 06/09/22 14:37: White Blood Count 8.1 Blood Pressure 144 /91 Mean: 108 Laboratory Tests 06/09/22 14:37: Creatinine 0.66, Platelet Count 357, Total Bilirubin 0.3 Results/Orders Lab Results Laboratory Tests Test 06/09/22 14:37 Range/Units White Blood Count 8.1 4.3-11.0 10^3/uL Red Blood Count 4.63 3.80-5.11 10^6/uL Hemoglobin 12.3 11.5-16.0 g/dL Hematocrit 39 35-52 % Mean Corpuscular Volume 84 80-99 fL Mean Corpuscular Hemoglobin 27 25-34 pg Mean Corpuscular Hemoglobin Concent 32 32-36 g/dL Red Cell Distribution Width 16.6 H 10.0-14.5 % Platelet Count 357 130-400 10^3/uL Mean Platelet Volume 10.1 9.0-12.2 fL Immature Granulocyte % (Auto) 0 % Neutrophils (%) (Auto) 65 42-75 % Lymphocytes (%) (Auto) 22 12-44 % Monocytes (%) (Auto) 10 0-12 % Eosinophils (%) (Auto) 3 0-10 % Basophils (%) (Auto) 1 0-10 % Neutrophils # (Auto) 5.3 1.8-7.8 X 10^3 Lymphocytes # (Auto) 1.8 1.0-4.0 X 10^3 Monocytes # (Auto) 0.8 0.0-1.0 X 10^3 Eosinophils # (Auto) 0.2 0.0-0.3 10^3/uL Basophils # (Auto) 0.1 0.0-0.1 10^3/uL Immature Granulocyte # (Auto) 0.0 0.0-0.1 10^3/uL Sodium Level 141 135-145 MMOL/L Potassium Level 4.0 3.6-5.0 MMOL/L Chloride Level 108 H 98-107 MMOL/L Carbon Dioxide Level 25 21-32 MMOL/L Anion Gap 8 5-14 MMOL/L Blood Urea Nitrogen 15 7-18 MG/DL Creatinine 0.66 0.60-1.30 MG/DL Estimat Glomerular Filtration Rate 128 BUN/Creatinine Ratio 23 Glucose Level 93 70-105 MG/DL Calcium Level 9.0 8.5-10.1 MG/DL Corrected Calcium 8.8 8.5-10.1 MG/DL Total Bilirubin 0.3 0.1-1.0 MG/DL Aspartate Amino Transf (AST/SGOT) 17 5-34 U/L Alanine Aminotransferase (ALT/SGPT) 27 0-55 U/L Alkaline Phosphatase 85 40-136 U/L Total Protein 7.3 6.4-8.2 GM/DL Albumin 4.2 3.2-4.5 GM/DL My Eladio Hendricks - OLYAJORGE Schwab APRN Cbc With Automated Diff (06/09/22 14:58) Comprehensive Metabolic Panel (06/09/22 14:58) Type And Screen (06/09/22 14:58) Ed Iv/Invasive Line Start (06/09/22 15:24) Ns Iv 1000 Ml (Sodium Chloride 0.9%) (06/09/22 15:30) Vital Signs/I&O 06/09/22 06/09/22 14:07 16:35 Pulse 104 80 Resp 20 16 B/P (MAP) 144/91 (108) 124/76 Pulse Ox 99 98 O2 Delivery Room Air Capillary Refill : Blood Pressure Mean: 108 Progress Note #1: Time: 15:21 Progress Note Patient seen and evaluated, resting comfortably, no acute distress. Based on exam and symptoms, work-up initiated including CBC, CMP, type and screen. Will perform digital rectal exam when nursing staff staff available. Progress Note #2: Time: 16:25 Progress Note Labs reviewed. CBC grossly normal, WBC 8.1, Hbg 12.3, Hct 39. CMP mostly normal, chloride slightly elevated 108, potassium normal 4.0, creatinine normal 0.66, GFR normal 128. Results discussed with patient. No external or internal hemorrhoids found on digital rectal exam, fecal hemoccult was positive. Recommended to patient to follow up with general surgery for rectal bleeding. Discharge instructions and return precautions provided. Departure Impression Primary Impression: Rectal bleeding Disposition: 01 HOME, SELF-CARE Condition: Stable Departure-Patient Inst. Decision time for Depature: 16:26 Referrals: ELO COLUNGA DO NO,LOCAL PHYSICIAN (PCP) Primary Care Physician Patient Instructions: Bloody Stools, Adult (DC) Add. Discharge Instructions: Take your stool softener twice a day, until you start having normal stools, then may reduce to once a day. Increase your water intake, it is very important for you to drink a lot of water especially with breast-feeding. Follow-up with the surgery clinic. Call them today to schedule appointment. Return for increasing bleeding, dizziness, lightheadedness, chest pain, shortness of air, or any other new, concerning, worsening symptoms. All discharge instructions reviewed with patient and/or family. Voiced understanding. JORGE DOBSON APRN Jun 09, 2022 15:22
[2022-06-09] MEDS ORDERED: NS IV 1000 ML 1,000 ML IV SCH (15:30)
[2022-06-09 16:35] VITALS: BP 124/76
== END 2022-06-09 16:34 | disposition home or self-care (01) ==
LOC: EDUNIT# 13:59 → ER 14:01
DX: K62.5 Hemorrhage of anus and rectum (principal); E87.8 Other disorders of electrolyte and fluid balance, not elsewhere classified
CPT/HCPCS: 36415; 80053; 82274; 85025; 86850; 86900; 86901

== ENCOUNTER 2022-06-18 06:16 | Outpatient (CLI) | payer MEDICAID ==
[~2022-06-18] VITALS: Ht 170.2 cm; Wt 94.8 kg
== END 2022-06-18 10:18 ==
LOC: PREOP 06:16
PROVIDERS: ATTEND Surgery
DX: Z01.818 Encounter for other preprocedural examination (principal); K62.5 Hemorrhage of anus and rectum